=== PATIENT | male | born 1945 | race Caucasian/White ===

== ENCOUNTER 2024-03-20 18:37 | Inpatient (IN) | payer MEDICARE ==
[2024-03-20] MEDS ORDERED: Sodium Chloride 0.9% 10 ML Syringe FLUSH PRN (20:21)
[2024-03-20] MEDS: Sodium Chloride 0.9% 1,000 ML IV SCH (20:48)
[2024-03-20 23:30] LABS: CREATININE 0.8 mg/dL (0.8-1.3); EST CRCL DRUG DOSING (CG) 81.11 mL/min; POTASSIUM,K 4.4 mmol/L (3.6-5.2)
[2024-03-20 23:34] LABS: ANION GAP 10.4 mmol/L (5.0-14.0)
[2024-03-21] MEDS: Sodium Chloride 0.9% 1,000 ML IV SCH (00:44)
[2024-03-21 01:50] LABS: CALCIUM 7.8 mg/dL (8.5-10.1); CREATININE 0.8 mg/dL (0.8-1.3); EST CRCL DRUG DOSING (CG) 83.67 mL/min; POTASSIUM,K 4.1 mmol/L (3.6-5.2)
[2024-03-21 01:54] LABS: ANION GAP 11.1 mmol/L (5.0-14.0)
[2024-03-21 04:28] LABS: CALCIUM 7.8 mg/dL (8.5-10.1); CREATININE 0.9 mg/dL (0.8-1.3); EST CRCL DRUG DOSING (CG) 74.37 mL/min; POTASSIUM,K 4.5 mmol/L (3.6-5.2)
[2024-03-21 04:29] LABS: ANION GAP 12.5 mmol/L (5.0-14.0)
[2024-03-21 06:22] LABS: CALCIUM 7.7 mg/dL (8.5-10.1); CREATININE 0.8 mg/dL (0.8-1.3); EST CRCL DRUG DOSING (CG) 83.67 mL/min; POTASSIUM,K 4.6 mmol/L (3.6-5.2)
[2024-03-21 06:23] LABS: ANION GAP 10.6 mmol/L (5.0-14.0)
[2024-03-21] MEDS ORDERED: Lisinopril 10 MG Tab PO SCH (09:00)
[2024-03-21] MEDS ORDERED: Hydrochlorothiazide 12.5 MG Cap PO SCH (09:00)
[2024-03-21] MEDS: Sodium Chloride 3% 500 ML IV SCH ×4 (09:09→23:34)
[2024-03-21] MEDS: buPROPion 150 MG Tab.ER PO SCH (09:10)
[2024-03-21] MEDS: Levothyroxine 88 MCG Tab PO SCH (09:10)
[2024-03-21] MEDS: Benzocaine/Cetylpyridinium/Menthol Lozenge MUCMEM PRN (16:03)
[2024-03-21] MEDS: atorvaSTATin 20 MG Tab PO SCH (20:29)
[2024-03-22] MEDS: Acetaminophen 325 MG Tab PO PRN (03:18)
[2024-03-22 04:14] LABS: CALCIUM 7.5 mg/dL (8.5-10.1); CREATININE 0.8 mg/dL (0.8-1.3); EST CRCL DRUG DOSING (CG) 81.9 mL/min; POTASSIUM,K 4.1 mmol/L (3.6-5.2)
[2024-03-22 04:15] LABS: ANION GAP 11.1 mmol/L (5.0-14.0)
[2024-03-22] MEDS: Sodium Chloride 3% 500 ML IV SCH (11:00)
[2024-03-22] MEDS: Melatonin 3 MG Tab PO PRN (22:56)
[2024-03-23 05:37] LABS: HEMATOCRIT 20.8 % (38.4-49.7); HEMOGLOBIN 7.2 g/dL (12.9-16.9); MEAN CORPUSCULAR HEMOGLOBIN 36.4 pg (31.6-35.5); MEAN CORPUSCULAR HGB CONC 34.6 g/dL (31.6-35.5); MEAN CORPUSCULAR VOLUME 105.1 fL (81.4-99.0); PLATELET COUNT,PLT 181 K/uL (130-375); RED BLOOD CELL COUNT 1.98 M/uL (4.14-5.76)
[2024-03-23 05:53] LABS: CALCIUM 7.6 mg/dL (8.5-10.1); CREATININE 0.8 mg/dL (0.8-1.3); EST CRCL DRUG DOSING (CG) 83.67 mL/min; POTASSIUM,K 4.2 mmol/L (3.6-5.2)
[2024-03-23 06:09] LABS: WHITE BLOOD CELL COUNT,WBC 37.8 K/uL (3.2-11.0)
[2024-03-23 06:10] LABS: ANION GAP 13.2 mmol/L (5.0-14.0)
[2024-03-23] MEDS: Sodium Chloride 3% 500 ML IV SCH ×2 (06:38→14:37)
[2024-03-23 07:03] LABS: LYMPHOCYTES ABSOLUTE MAN 37.42 K/uL (0.8-3.3); LYMPHOCYTES PERCENT MAN 99 % (24-44); NEUTROPHILS ABSOLUTE MAN 0.38 K/uL (1.0-7.6); SEG NEUTROPHILS PERCENT MAN 1 % (36-66)
[2024-03-23] MEDS: Cetirizine 10 MG Tab PO SCH (11:10)
[2024-03-23] MEDS: Polyethylene Glycol 3350 Powder 17 GM Packet PO ONE (11:39)
[2024-03-24] MEDS: guaiFENesin 100 MG/5 ML Soln 10 ML UD Cup PO PRN (02:55)
[2024-03-24 05:15] LABS: CALCIUM 8.2 mg/dL (8.5-10.1); CREATININE 0.9 mg/dL (0.8-1.3); EST CRCL DRUG DOSING (CG) 74.37 mL/min; POTASSIUM,K 4.7 mmol/L (3.6-5.2)
[2024-03-24 05:17] LABS: ANION GAP 12.7 mmol/L (5.0-14.0)
[2024-03-24 10:02] LABS: HEMATOCRIT 21.5 % (38.4-49.7); HEMOGLOBIN 7.4 g/dL (12.9-16.9); MEAN CORPUSCULAR HGB CONC 34.4 g/dL (31.6-35.5); MEAN CORPUSCULAR VOLUME 107.5 fL (81.4-99.0)
[2024-03-24 10:04] LABS: WHITE BLOOD CELL COUNT,WBC 39.3 K/uL (3.2-11.0)
[2024-03-24] MEDS: Sennosides/Docusate Sodium 50-8.6 MG Tab PO SCH (10:50)
[2024-03-24] MEDS: Furosemide 40 MG/4 ML VIAL IVPUSH ONE ×2 (10:50→16:44)
[2024-03-24] MEDS: Sodium Chloride 3% 500 ML IV SCH (22:41)
[2024-03-25 04:14] LABS: HEMATOCRIT 23.9 % (38.4-49.7); HEMOGLOBIN 8.3 g/dL (12.9-16.9); MEAN CORPUSCULAR HEMOGLOBIN 35.3 pg (31.6-35.5); MEAN CORPUSCULAR HGB CONC 34.7 g/dL (31.6-35.5); MEAN CORPUSCULAR VOLUME 101.7 fL (81.4-99.0); RED BLOOD CELL COUNT 2.35 M/uL (4.14-5.76)
[2024-03-25 04:30] LABS: EST CRCL DRUG DOSING (CG) 66.93 mL/min; POTASSIUM,K 3.8 mmol/L (3.6-5.2)
[2024-03-25 04:56] LABS: ANION GAP 12.8 mmol/L (5.0-14.0)
[2024-03-25] MEDS: Sodium Chloride 0.9% 80 ML IV SCH (11:56)
[2024-03-25] MEDS: Iopamidol 612 MG/ML 100 ML Bottle IV SCH (11:57)
[2024-03-25] MEDS: Furosemide 40 MG/4 ML VIAL IVPUSH ONE (12:03)
[2024-03-25] MEDS: Levofloxacin 250 MG Tab PO SCH (12:03)
[2024-03-25] MEDS: Sodium Chloride 3% 500 ML IV SCH (13:47)
[2024-03-25] MEDS: Magnesium Hydroxide 400 MG/5 ML Susp 30 ML Cup PO PRN (13:51)
[2024-03-25] MEDS: Sodium Phosphate,Monobasic/Sodium Phosphate,Dibasic Enema 133 ML Bottle RECTAL ONE (17:58)
[2024-03-26 05:22] LABS: HEMATOCRIT 22.9 % (38.4-49.7); HEMOGLOBIN 7.8 g/dL (12.9-16.9); MEAN CORPUSCULAR HEMOGLOBIN 34.5 pg (31.6-35.5); MEAN CORPUSCULAR HGB CONC 34.1 g/dL (31.6-35.5); MEAN CORPUSCULAR VOLUME 101.3 fL (81.4-99.0); RED BLOOD CELL COUNT 2.26 M/uL (4.14-5.76)
[2024-03-26 05:37] LABS: WHITE BLOOD CELL COUNT,WBC 36.1 K/uL (3.2-11.0)
[2024-03-26 06:07] LABS: CALCIUM 7.6 mg/dL (8.5-10.1); EST CRCL DRUG DOSING (CG) 66.93 mL/min; POTASSIUM,K 3.3 mmol/L (3.6-5.2)
[2024-03-26 08:44] LABS: ANION GAP 12.3 mmol/L (5.0-14.0)
[2024-03-26] MEDS: Metoprolol Tartrate 25 MG Tab PO SCH (10:46)
[2024-03-26] MEDS: Potassium Chloride 20 MEQ Tab.ER PO ONE ×2 (11:15→16:32)
[2024-03-26] MEDS: Sodium Chloride 0.9% 1,000 ML IV SCH (11:15)
[2024-03-26] MEDS: Albuterol 0.083% 2.5 MG/3 ML Neb Soln NEB ONE (20:31)
[2024-03-26] MEDS: Sennosides/Docusate Sodium 50-8.6 MG Tab PO SCH (21:47)
[2024-03-27 05:20] LABS: HEMATOCRIT 22.1 % (38.4-49.7); HEMOGLOBIN 7.6 g/dL (12.9-16.9); MEAN CORPUSCULAR HEMOGLOBIN 33.6 pg (31.6-35.5); MEAN CORPUSCULAR HGB CONC 34.4 g/dL (31.6-35.5); MEAN CORPUSCULAR VOLUME 97.8 fL (81.4-99.0); RED BLOOD CELL COUNT 2.26 M/uL (4.14-5.76)
[2024-03-27 05:41] LABS: WHITE BLOOD CELL COUNT,WBC 42.2 K/uL (3.2-11.0)
[2024-03-27 05:59] LABS: CALCIUM 7.7 mg/dL (8.5-10.1); CREATININE 0.9 mg/dL (0.8-1.3); EST CRCL DRUG DOSING (CG) 74.07 mL/min; MAGNESIUM 2.3 mg/dL (1.8-2.4); POTASSIUM,K 4.8 mmol/L (3.6-5.2)
[2024-03-27 06:13] LABS: ANION GAP 16.8 mmol/L (5.0-14.0)
[2024-03-27] MEDS: Levofloxacin/Dextrose 5%-Water 750 MG in Premix Bag 1 BAG IV SCH (08:12)
[2024-03-27] MEDS: Metoprolol Succinate 50 MG Tab.ER PO SCH (08:20)
[2024-03-27] MEDS: Acetylcysteine 20% 200 MG/ML 4 ML Nebulizer Soln SDV NEB SCH (15:13)
[2024-03-27 17:14] LABS: CALCIUM 7.6 mg/dL (8.5-10.1); CREATININE 1.1 mg/dL (0.8-1.3); EST CRCL DRUG DOSING (CG) 60.6 mL/min; POTASSIUM,K 4.5 mmol/L (3.6-5.2)
[2024-03-27 17:15] LABS: ANION GAP 15.5 mmol/L (5.0-14.0)
[2024-03-27] MEDS: Melatonin 3 MG Tab PO SCH (20:03)
[2024-03-27] MEDS: Codeine/guaiFENesin 10-100 MG/5 ML Syrup 5 ML Cup PO PRN (22:24)
[2024-03-28 01:30] LABS: LEGIONELLA PNEUMOPHILA AG,URN Negative (Negative)
[2024-03-28 01:32] LABS: STREPTOCOCCUS PNEUMONIAE AG,UR Negative (Negative)
[2024-03-28 05:06] LABS: HEMATOCRIT 23.6 % (38.4-49.7); HEMOGLOBIN 7.9 g/dL (12.9-16.9); MEAN CORPUSCULAR HEMOGLOBIN 34.5 pg (31.6-35.5); MEAN CORPUSCULAR HGB CONC 33.5 g/dL (31.6-35.5); MEAN CORPUSCULAR VOLUME 103.1 fL (81.4-99.0); RED BLOOD CELL COUNT 2.29 M/uL (4.14-5.76)
[2024-03-28 05:13] LABS: WHITE BLOOD CELL COUNT,WBC 39.4 K/uL (3.2-11.0)
[2024-03-28 05:17] LABS: CALCIUM 7.6 mg/dL (8.5-10.1); CREATININE 1.1 mg/dL (0.8-1.3); EST CRCL DRUG DOSING (CG) 60.6 mL/min; POTASSIUM,K 4.3 mmol/L (3.6-5.2)
[2024-03-28 05:20] LABS: ANION GAP 16.3 mmol/L (5.0-14.0)
[2024-03-28] MEDS: Furosemide 20 MG/2 ML VIAL IVPUSH ONE (08:53)
[2024-03-29 05:26] LABS: HEMATOCRIT 23.5 % (38.4-49.7); MEAN CORPUSCULAR HEMOGLOBIN 34.3 pg (31.6-35.5); MEAN CORPUSCULAR VOLUME 100.9 fL (81.4-99.0); RED BLOOD CELL COUNT 2.33 M/uL (4.14-5.76)
[2024-03-29 05:32] LABS: WHITE BLOOD CELL COUNT,WBC 37.1 K/uL (3.2-11.0)
[2024-03-29 05:43] LABS: CALCIUM 7.6 mg/dL (8.5-10.1); CREATININE 1.3 mg/dL (0.8-1.3); EST CRCL DRUG DOSING (CG) 51.28 mL/min; POTASSIUM,K 4.4 mmol/L (3.6-5.2)
[2024-03-29 05:49] LABS: ANION GAP 14.4 mmol/L (5.0-14.0)
[2024-03-29] MEDS: Furosemide 20 MG/2 ML VIAL IVPUSH ONE (16:42)
[2024-03-30 07:43] LABS: CALCIUM 7.8 mg/dL (8.5-10.1); CREATININE 1.9 mg/dL (0.8-1.3); EST CRCL DRUG DOSING (CG) 35.08 mL/min; POTASSIUM,K 4.7 mmol/L (3.6-5.2)
[2024-03-30] MEDS ORDERED: Ondansetron 4 MG Tab.DIS ONE (11:08)
[2024-03-30 13:36] LABS: HEMATOCRIT 24.4 % (38.4-49.7); HEMOGLOBIN 8.3 g/dL (12.9-16.9); MEAN CORPUSCULAR HEMOGLOBIN 34.2 pg (31.6-35.5); MEAN CORPUSCULAR VOLUME 100.4 fL (81.4-99.0); RED BLOOD CELL COUNT 2.43 M/uL (4.14-5.76)
[2024-03-30 14:23] LABS: ANION GAP 14.7 mmol/L (5.0-14.0); WHITE BLOOD CELL COUNT,WBC 39.5 K/uL (3.2-11.0)
== END 2024-03-30 12:45 | disposition home health service (06) | DRG 640 ==
LOC: JP.ED 18:37 → JP.ICU 23:50 → OBSVTOIN 03-21 09:04
PROVIDERS: ADMIT Internal Medicine; ATTEND Hospitalist
PROC: 30233N1 Transfusion of Nonautologous Red Blood Cells into Peripheral Vein, Percutaneous Approach (ICD-10-PCS; principal; 2024-03-24)
DX: E87.1 Hypo-osmolality and hyponatremia (principal); J18.9 Pneumonia, unspecified organism; C91.10 Chronic lymphocytic leukemia of B-cell type not having achieved remission; D63.0 Anemia in neoplastic disease; E87.70 Fluid overload, unspecified; R00.0 Tachycardia, unspecified; T46.4X5A Adverse effect of angiotensin-converting-enzyme inhibitors, initial encounter; T50.2X5A Adverse effect of carbonic-anhydrase inhibitors, benzothiadiazides and other diuretics, initial encounter; I10 Essential (primary) hypertension; I25.10 Atherosclerotic heart disease of native coronary artery without angina pectoris; E78.5 Hyperlipidemia, unspecified; E03.9 Hypothyroidism, unspecified; Z88.2 Allergy status to sulfonamides; Z79.899 Other long term (current) drug therapy; Z95.1 Presence of aortocoronary bypass graft; Z87.891 Personal history of nicotine dependence
CPT/HCPCS: 36415 ×2; 80048 ×4; 96360; 96361 ×2; 99284; 99285; G0378 ×2; J7030 ×3; 36430; 71046; 71260; 82306; 82607; 83735; 84295; 85025; 85027; 86850; 86900; 86901; 86920; 86922; 87449; 87899; 93005; 94640; 94667; 97161-GP; 99232; 99238; A9270-GY; J1940; J1956; J3490; J7131; P9016; Q9967

== ENCOUNTER 2024-04-01 03:38 | Emergency (ER) | payer MEDICARE ==
[2024-04-01 04:30] LABS: HEMATOCRIT 23.1 % (38.4-49.7); MEAN CORPUSCULAR HEMOGLOBIN 33.8 pg (31.6-35.5); MEAN CORPUSCULAR HGB CONC 34.6 g/dL (31.6-35.5); MEAN CORPUSCULAR VOLUME 97.5 fL (81.4-99.0); PLATELET COUNT,PLT 81 K/uL (130-375); RED BLOOD CELL COUNT 2.37 M/uL (4.14-5.76)
[2024-04-01 04:33] LABS: WHITE BLOOD CELL COUNT,WBC 42.3 K/uL (3.2-11.0)
[2024-04-01 04:50] LABS: LYMPHOCYTES ABSOLUTE MAN 38.49 K/uL (0.8-3.3); LYMPHOCYTES PERCENT MAN 91 % (24-44); NEUTROPHILS ABSOLUTE MAN 3.81 K/uL (1.0-7.6); SEG NEUTROPHILS PERCENT MAN 9 % (36-66)
[2024-04-01 04:56] LABS: A/G RATIO 0.5 (1.2-2.2); ALANINE AMINOTRANSFERASE,ALT 285 U/L (12-78); ALBUMIN 1.5 g/dL (3.4-5.0); ALKALINE PHOSPHATASE 152 U/L (46-116); ASPARTATE AMNIOTRANSFERASE,AST 243 U/L (15-37); CALCIUM 7.8 mg/dL (8.5-10.1); CARBON DIOXIDE,CO2 19 mmol/L (21-32); CHLORIDE,CL 93 mmol/L (100-108); EST CRCL DRUG DOSING (CG) 17.16 mL/min; ESTIMATED GFR 15 mL/min (>60); GLUCOSE RANDOM 102 mg/dL (74-106); POTASSIUM,K 5.9 mmol/L (3.6-5.2); PRO B-TYPE NATRIUR PEPT,BNPPRO 7308 pg/mL (5-450); PROTEIN TOTAL,TP 4.6 g/dL (6.4-8.2); SODIUM,NA 123 mmol/L (140-148)
[2024-04-01 04:57] LABS: ANION GAP 16.9 mmol/L (5.0-14.0)
[2024-04-01 04:59] LABS: BLOOD UREA NITROGEN,BUN 117 mg/dL (7-18); CREATININE 3.9 mg/dL (0.8-1.3); TROPONIN I HIGH SENSITIVITY 1528.3 pg/mL (<=60.3)
[2024-04-01] MEDS: Heparin Sodium/D5W 25,000 UNITS/500 ML BAG IV SCH (06:09)
[2024-04-01] MEDS ORDERED: Piperacillin/Tazobactam 3.375 GM in Sodium Chloride 0.9% 50 ML IV SCH (06:15)
[2024-04-01] MEDS: Piperacillin/Tazobactam 4.5 GM in Sodium Chloride 0.9% 100 ML IV ONE (06:34)
[2024-04-01] MEDS ORDERED: Sodium Chloride 0.9% 250 ML IV SCH (06:45)
[2024-04-01] MEDS ORDERED: Piperacillin/Tazobactam 4.5 GM in Sodium Chloride 0.9% 100 ML IV ONE (07:00)
[2024-04-01] MEDS: Albuterol/Ipratropium 3.0-0.5 MG/3 ML Neb Soln NEB ONE (07:08)
[2024-04-01] MEDS: Sodium Chloride 0.9% 500 ML IV ONE (08:15)
[2024-04-01] MEDS: Piperacillin/Tazobactam 4.5 GM in Sodium Chloride 0.9% 100 ML IV SCH (10:35)
== END 2024-04-01 10:33 ==
LOC: JP.ED 03:38
DX: J18.9 Pneumonia, unspecified organism (principal); E87.5 Hyperkalemia; I50.9 Heart failure, unspecified; E87.1 Hypo-osmolality and hyponatremia; N19 Unspecified kidney failure; R09.02 Hypoxemia; E03.9 Hypothyroidism, unspecified; Z88.2 Allergy status to sulfonamides; Z79.890 Hormone replacement therapy; Z79.899 Other long term (current) drug therapy; Z87.891 Personal history of nicotine dependence
CPT/HCPCS: 36415; 71045; 80053; 83880; 84484; 85025; 93010; 94640; 96365; 96366; 96368; 99285; 99291; 99292; J1644; J2543; J3370; J3490; J7040; J7050; J7620